=== PATIENT | male | born 1970 | race Two or more races ===

== ENCOUNTER 2016-10-27 13:35 | Emergency (ER) | payer OTHER ==
[~2016-10-27] VITALS: Ht 157.5 cm; Wt 63.5 kg
[2016-10-27] MEDS ORDERED: IBUPROFEN600 MG ORAL (15:39)
[2016-10-27 16:25] VITALS: BP 129/80
[2016-10-27 16:27] VITALS: BP 129/80
--- NOTE | 2016-10-27 16:39 | Diagnostic Imaging Report ---
Indication: PAIN Technique: 2 views of the right clavicle Comparison: None Findings: No acute fractures. No dislocations. Acromioclavicular joint appears normal. Impression: Negative
--- NOTE | 2016-10-27 16:59 | Diagnostic Imaging Report ---
Indication: PAIN Technique: Supine view of the abdomen Comparison: none Findings: Bowel gas pattern is unremarkable. No unusual masses or calcifications. Impression: No acute process
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
== END 2016-10-27 16:27 | disposition home or self-care (01) ==
LOC: EMR 15:12
DX: R10.30 Lower abdominal pain, unspecified (principal); M25.511 Pain in right shoulder; V49.50XA Passenger injured in collision with unspecified motor vehicles in traffic accident, initial encounter; Y92.410 Unspecified street and highway as the place of occurrence of the external cause
CPT/HCPCS: 74000